=== PATIENT | male | born 1945 | race Caucasian/White ===

== ENCOUNTER 2018-05-16 21:23 | Day surgery (SDC) | payer MEDICARE, OTHER ==
[2018-05-16] MEDS ORDERED: GLUCAGON 1 MG/ML VIAL IVP STA ×2 (21:40→22:12)
--- NOTE | 2018-05-16 21:41 | ED Physician Documentation ---
History of Present Illness - Stated complaint Stated Complaint: FOOD CAUGHT IN THROAT - Chief complaint Chief Complaint: General - History obtained from History obtained from: Patient - History of Present Illness Timing: Today (About 7:00 he swallowed a piece of steak and it got stuck and it is persistently there and he is unable to swallow secretions. No vocal problems.) Review of Systems Ten Systems: 10 systems reviewed and negative Constitutional: reports: Reviewed and negative Throat: reports: Reviewed and negative Cardiac: reports: Reviewed and negative PD PAST MEDICAL HISTORY - Past Surgical History Past Surgical History: Yes General: Cholecystectomy - Present Medications Home Medications: Ambulatory Orders Medication Instructions Recorded Confirmed Ciprofloxacin HCl [Cipro] 500 mg PO BID #14 tablet 01/03/15 RX: Mupirocin 1 applic TP TID #15 oint...g. 01/03/15 RX: Tea Tree Oil 1 applic TP DAILY #30 ml 01/03/15 - Allergies Allergies/Adverse Reactions: Allergies Allergy/AdvReac Type Severity Reaction Status Date / Time No Known Drug Allergies Allergy Verified 05/16/18 21:33 - Social History Does the pt smoke?: No Smoking Status: Never smoker Does the pt drink ETOH?: Yes Does the pt have substance abuse?: No - Immunizations Immunizations are current?: No - POLST Patient has POLST: No PD ED PE NORMAL - Vitals Vital signs reviewed: Yes - General General: Alert and oriented X 3, No acute distress - HEENT HEENT: PERRL, Pharynx benign - Neck Neck: Supple, no meningeal sign, No bony TTP - Cardiac Cardiac: RRR, No murmur - Respiratory Respiratory: No respiratory distress, Clear bilaterally - Abdomen Abdomen: Non tender - Back Back: No CVA TTP, No spinal TTP - Derm Derm: Normal color, Warm and dry - Extremities Extremities: No edema, No calf tenderness / cord - Neuro Neuro: Alert and oriented X 3, Normal speech - Psych Psych: Normal mood, Normal affect Results - Vitals Vitals: Vital Signs - 24 hr 05/16/18 21:31 Temperature 36.8 C Heart Rate 74 Respiratory 18 Rate Blood Pressure 153/87 H O2 Saturation 97 Oxygen O2 Source Room air PD MEDICAL DECISION MAKING - ED course ED course: 72yo male with steak esophageal impaction. Not swallowing secreation but airway fine. Tried divided doses of meds as follows: Glucagon 2mg IV Nitroglycerin 0.4mg SL Glucagon 2mg IV Nitro again Ativan 0.5mg IV All to no avail Care to Dr Hughes at shift change who spoke with Dr Oli Hastings for endoscopic fix. - Sepsis Event Vital Signs: Vital Signs - 24 hr 05/16/18 21:31 Temperature 36.8 C Heart Rate 74 Respiratory 18 Rate Blood Pressure 153/87 H O2 Saturation 97 Oxygen O2 Source Room air Departure - Departure Disposition: ED Transfer to [facility] Clinical Impression: Esophageal obstruction due to food impaction Condition: Stable
[2018-05-16] MEDS ORDERED: WATER FOR INJECTION,STERILE 10 ML ONE ×2 (21:49→22:14)
[2018-05-16] MEDS ORDERED: NITROGLYCERIN SL 0.4 MG TABLET SL STA ×2 (22:01→22:26)
[2018-05-16] MEDS ORDERED: LORazepam 2 MG/ML VIAL IVP STA (22:26)
[2018-05-16] MEDS ORDERED: SODIUM CHLORIDE 0.9% 1,000 ML IV ONE (23:37)
--- NOTE | 2018-05-16 23:44 | ED Physician Documentation ---
ED Addendum - Addendum Addendum: 05/16/18 23:42 Patient is a 72-year-old male who was signed out to me by Dr. Humphrey. He has some esophageal food impaction, steak. Not relieved by medical therapy. I contacted Dr. Oli Hastings, surgery on-call who will plan to take the patient to the operating room for endoscopy and removal. This document was made in part using voice recognition software. While efforts are made to proofread this document, sound alike and grammatical errors may occur. Departure - Departure Disposition: ED Transfer to [facility] Clinical Impression: Esophageal obstruction due to food impaction Condition: Stable
[2018-05-17 00:02] LABS: BASOPHILS # (AUTO) 0.1 10^3/uL (0.0-0.1); EOSINOPHILS # (AUTO) 0.1 10^3/uL (0.0-0.7); HGB - HEMOGLOBIN 14.9 g/dL (14.0-18.0); LYMPHOCYTES # (AUTO) 1.5 10^3/uL (1.5-3.5); MEAN CORPUSCULAR HGB CONC 34.5 g/dL (32.0-36.0); MEAN CORPUSCULAR VOLUME 92.7 fL (80.0-94.0); MONOCYTES # (AUTO) 0.7 10^3/uL (0.0-1.0); MONOCYTES % (AUTO) 5.3 %; NEUTROPHILS # (AUTO) 10.9 10^3/uL (1.5-6.6); NEUTROPHILS % (AUTO) 81.7 %; PLT - PLATELET COUNT 291 10^3/uL (130-450); RED BLOOD COUNT 4.67 10^6/uL (4.70-6.10); RED CELL DISTRIBUTION WIDTH 14.2 % (12.0-15.0); WHITE BLOOD COUNT 13.4 x10^3/uL (4.8-10.8)
[2018-05-17 00:09] LABS: ALBUMIN 4.1 g/dL (3.2-5.5); ALBUMIN/GLOBULIN RATIO 1.1 (1.0-2.2); CALCIUM 8.9 mg/dL (8.5-10.3); TOTAL PROTEIN 7.9 g/dL (6.7-8.2)
--- NOTE | 2018-05-17 00:29 | CONSULTATION NOTE ---
Referring Provider Name of Referring Provider:: Dr. Hughes Consult Date: 05/17/18 Chief Complaint - Chief Complaint Chief Complaint: dysphagia History of Present Illness - Admitted From Admitted From:: ER - History Obtained From Records Reviewed: yes History obtained from: pt Exam Limitations: none - History of Present Illness HPI Comment/Other: 72 yo male who noted acute onset of dysphagia and odynophagia while eating steak for dinner approximately 5 hours ago. He has been retching and unable to swallow his saliva since. Points to upper chest as location of discomfort. No prior similar episodes. No hx of frequent heartburn or dysphagia except for an o ccasional pill. Had 2 beers to drink with dinner. No tobacco use, abd pain, wt changes, fever, chills, respiratory sx. Wears dentures. History - Past Medical History Cardiovascular: reports: None Respiratory: reports: None Neuro: reports: None Endocrine/Autoimmune: reports: None GI: reports: None : reports: None HEENT: reports: None Psych: reports: None Musculoskeletal: reports: Chronic back pain MRSA Hx?: No - Past Surgical History General: reports: Cholecystectomy HEENT: reports: Cataracts - Family & Social History Living arrangement: At home Living Situation: With spouse/s.o. - Substance History Use: Uses substance without health or social issues: Alcohol (0-2 drinks/week) Abuse: Recurrent use of substance despite neg consequences: NONE Dependence: Experiences withdrawal or developed tolerances: NONE - POLST Patient has POLST: No Meds/Allgy - Home Medications Home Medications: Ambulatory Orders Medication Instructions Recorded Confirmed Naproxen Sodium [Aleve] 200 mg PO BID 05/16/18 - Allergies Allergies/Adverse Reactions: Allergies Allergy/AdvReac Type Severity Reaction Status Date / Time No Known Drug Allergies Allergy Verified 05/16/18 21:33 Review of Systems - Constitutional Constitutional: denies: Fever, Chills, Poor appetite - Cardiovascular Cariovascular: denies: Chest pain - Respiratory Respiratory: denies: Cough, Sputum production, Wheezing - Gastrointestinal Gastrointestinal: denies: Abdominal pain, Constipation, Diarrhea - Genitourinary Genitourinary: denies: Dysuria - Musculoskeletal Musculoskeletal: reports: Back pain - Hematologic/Lymphatic Hematologic/Lymphatic: denies: Bruising, Bleeding tendencies - All Other Systems All Other Systems: reports: Reviewed and negative Exam - Vital Signs Reviewed Vital Signs: Yes Vital Signs: Vital Signs x48h Temp Pulse Resp BP Pulse Ox 05/16/18 22:46 36.8 C 90 20 116/67 95 05/16/18 21:31 36.8 C 74 18 153/87 H 97 - Physical Exam General Appearance: positive: Alert, Other (sitting up, regurgitating saliva spontaneously repeatedly) Eyes Bilateral: positive: Normal inspection ENT: positive: No signs of dehydration, Pharyngeal erythema (focal) Neck: positive: Nml inspection, No JVD, Trachea midline. negative: Lymphadenopathy (R), Lymphadenopathy (L) Respiratory: positive: Chest non-tender, No respiratory distress, Breath sounds nml. negative: Wheezes, Rales, Rhonchi Cardiovascular: positive: Regular rate & rhythm, No murmur, No gallop Abdomen: positive: Non-tender, No organomegaly, No distention. negative: Tenderness Extremities: positive: Nml appearance, Pedal edema (1+ pretibial bilat). negative: Calf tenderness Neurologic/Psychiatric: positive: Oriented x3 Conclusion/Plan - Diagnosis Diagnosis: Esophageal obstruction secondary to food bolus foreign body. No hx of sx suggestive of underlying structural abnormalities such as stricture or GERD. - Plan Plan: EGD with removal of foreign body. PAR conference held and risks of bleeding, perforation, aspiration discussed in detail and consent obtained. The procedure will be performed as soon as it can be arranged this evening. - Lab Results Lab results reviewed: Yes Fish Bones: 05/16/18 23:50 05/16/18 23:50
--- NOTE | 2018-05-17 00:30 | ANESTHESIA ---
Pre-Anesthesia VS, & Labs - Diagnosis Food Impaction - Procedure EGD Vital Signs: Temp Pulse Resp BP Pulse Ox 36.8 C 90 20 116/67 95 05/16/18 22:46 05/16/18 22:46 05/16/18 22:46 05/16/18 22:46 05/16/18 22:46 Height 6 ft 2 in Weight (kg) 113.398 kg Body Mass Index 32.1 - NPO Last Food Intake: 0 - Lab Results Current Lab Results: Laboratory Tests 05/16/18 23:50: Sodium 139, Potassium 3.8, Chloride 106, Carbon Dioxide 26, Anion Gap 7.0, BUN 20, Creatinine 1.0, Estimated GFR (MDRD) 74 L, Glucose 105 H, Calcium 8.9, Total Bilirubin 1.0, AST 28, ALT 23, Alkaline Phosphatase 91, Total Protein 7.9, Albumin 4.1, Globulin 3.8, Albumin/Globulin Ratio 1.1, Lipase 42 05/16/18 23:50: WBC 13.4 H, RBC 4.67 L, Hgb 14.9, Hct 43.3, MCV 92.7, MCH 32.0 H , MCHC 34.5, RDW 14.2, Plt Count 291, MPV 8.0, Neut # (Auto) 10.9 H, Lymph # (Auto) 1.5, Bland # (Auto) 0.7, Eos # (Auto) 0.1, Baso # (Auto) 0.1, Absolute Nucleated RBC 0.01, Nucleated RBC % 0.1 Lab results reviewed: Yes Fish Bones: 05/16/18 23:50 05/16/18 23:50 Home Medications and Allergies Home Medications: Ambulatory Orders Naproxen Sodium [Aleve] 200 mg PO BID 05/16/18 Naproxen Sodium [Aleve] 200 mg PO BID 05/16/18 Allergies/Adverse Reactions: Allergies Allergy/AdvReac Type Severity Reaction Status Date / Time No Known Drug Allergies Allergy Verified 05/16/18 21:33 Anes History & Medical History - Anesthetic History Anesthesia Complications: reports: No previous complications Family history of Anesthesia Complications: Denies Family history of Malignant Hyperthermia: Denies - Medical History Cardiovascular: reports: None Pulmonary: reports: None Gastrointestinal: reports: None Urinary: reports: None Neuro: reports: None Musculoskeletal: reports: None Endocrine/Autoimmune: reports: None Blood Disorders: reports: None Skin: reports: None Smoking Status: Never smoker Psychosocial: reports: No issues indicated - Surgical History General: Cholecystectomy Exam General: Alert, Oriented x3, Cooperative, No acute distress Dental: WNL Mouth Openin Fingerbreadth Neck Mobility: Normal Mallampati classification: II Thyromental Distance: 4-6 cm Respiratory: Lungs clear, Normal breath sounds, No respiratory distress, No accessory muscle use Cardiovascular: Regular rate, Normal S1, Normal S2, No murmurs Mental/Cognitive Status: Alert/Oriented X3, Normal for patient Plan Anesthesia Type: General Consent for Procedure(s) Verified and Reviewed: Yes Code Status: Attempt Resuscitation ASA classification: 1-Healthy patient Is this case an emergency?: Yes
--- NOTE | 2018-05-17 00:40 | ED Physician Documentation ---
ED Addendum - Addendum Addendum: 05/17/18 00:39 EKG 0032 - 61 NSR, left axis deviation, normal MO. q waves III, aVF. Normal ST segments. normal QRS.
[2018-05-17] MEDS ORDERED: LACTATED RINGERS 1,000 ML IV ONE (00:46)
[2018-05-17] MEDS ORDERED: ONDANSETRON 4 MG/2 ML VIAL IVP ONE (01:28)
[2018-05-17] MEDS ORDERED: PROPOFOL 200 MG/20 ML VIAL IVP ONE (01:28)
[2018-05-17] MEDS ORDERED: SUCCINYLCHOLINE 200 MG/10 ML VIAL IVP ONE (01:28)
[2018-05-17] MEDS ORDERED: fentaNYL 100 MCG/2 ML VIAL IVP ONE (01:28)
[2018-05-17 01:45] VITALS: BP 131/73
== END 2018-05-17 00:16 | disposition home or self-care (01) ==
LOC: ED 21:23 → SDS 05-17 00:15
PROVIDERS: ATTEND Internal Medicine Gastroenterology
PROC: 0DC98ZZ Extirpation of Matter from Duodenum, Via Natural or Artificial Opening Endoscopic (ICD-10-PCS; principal; 2018-05-16)
PROC: 0DB98ZX Excision of Duodenum, Via Natural or Artificial Opening Endoscopic, Diagnostic (ICD-10-PCS; 2018-05-16)
PROC: 0DB58ZX Excision of Esophagus, Via Natural or Artificial Opening Endoscopic, Diagnostic (ICD-10-PCS; 2018-05-16)
DX: T18.128A Food in esophagus causing other injury, initial encounter (principal); K29.80 Duodenitis without bleeding; K57.10 Diverticulosis of small intestine without perforation or abscess without bleeding
CPT/HCPCS: 36415; 43239; 43247; 80053; 83690; 85025; 87081; 88305; 93005; 96374; 96375; 99283; 99284; A9270; J0330; J2060; J7120